=== PATIENT | female | born 1980 | race American Indian/Alaskan Native ===

== ENCOUNTER 2024-08-12 15:40 | Emergency (ER) | payer SELFPAY ==
[2024-08-12 15:55] VITALS: BP 124/77; PULSE 91; RESP 18; TEMP 37; O2SAT 97; BMI 23.5
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
--- OUTSIDE RECORDS SUMMARY | 2024-08-12 18:42 | XMS_ITS | Referral Summary ---
Author Organization [facility] Address [address] [address] Care Team Providers Care Medical Photographer Name Role Phone Unavailable Primary Care Provider Unavailabl e Allergies Active Allergy Reactions Criticality Noted Date Comments Onion 11/12/2012 Medications Medication Sig Dispensed Refills Start Date End Date Status loratadine (CLARITIN) 10 MG tablet Take 10 mg by mouth nightly. Active calcium carbonate (TUMS) 500 MG chewable tablet Take 2 tablets by mouth 2 (two) times daily as needed. Active venlafaxine (EFFEXOR-XR) 75 MG 24 hr capsule Take 75 mg by mouth nightly. Active traZODone (DESYREL) 100 MG tablet Take 1 tablet (100 mg total) by mouth nightly as needed for Sleep. 30 tablet 0 11/15/2012 Active venlafaxine (EFFEXOR-XR) 75 MG 24 hr capsule Take 1 capsule (75 mg total) by mouth nightly. 30 capsule 0 11/15/2012 Active Active Problems Problem Noted Date Diagnosed Date Major depressive disorder, r ecurrent episode, severe, without mention of psychotic behavior 11/13/2012 Resolved Problems Problem Noted Date Diagnosed Date Resolved Date Suicidal ideation 11/13/2012 11/15/2012 Mood disorder 11/12/2012 11/15/2012 Social History Tobacco Use Types Packs/Day Years Used Date Smoking Tobacco: Never Assessed Alcohol Use Standard Drinks/Week Comments No 0 (1 standard drink = 0.6 oz pur e alcohol) Sexually Active Control Partners Comments Yes Female Sex and Gender Information Value Date Recorded Sex Assigned at Not on file Gender Identity Not on file Sexual Orientation Not on file Last Filed Vital Signs Vital Sign Reading Time Taken Comments Blood Pressure 103/59 11/15/2012 6:21 AM CDT Pulse 89 11/15/2012 6:21 AM CDT Temperature 37.1 C (98.7 F) 11/15/2012 6:21 AM CDT Respiratory Rate 16 11/15/2012 6:21 AM CDT Oxygen Saturation - - Inhaled Oxygen Concentration - - Weight 72.6 kg (160 lb) 11/12/2012 10:43 PM CDT Height 170.2 cm (5' 7) 11/12/2012 10:43 PM CDT Body Mass Index 25.06 11/12/2012 10:43 PM CDT Plan of Treatment Not on file Advance Directives For more information, please contact: [phone] * Full Code (Latest Code Status on File) Date Activated Date Inactivated Comments 11/12/2012 10:54 PM 11/15/2012 5:16 PM
--- OUTSIDE RECORDS SUMMARY | 2024-08-12 18:42 | XMS_ITS | Clinical Summary ---
Author Organization [facility] Address [address] [address] Care Team Providers Care Utility Agent Name Role Phone Unavailable Primary Care Provider [...] ideation 11/13/2012 11/15/2012 Mood disorder 11/12/2012 11/15/2012 Family History Medical History Relation Comments Mental illness Sister Relation Status Comments Sister Social History Tobacco Use Types Packs/Day Years [...] 11/12/2012 10:43 PM CDT Plan of Treatment Health Maintenance Due Date Last Done Comments Breast Cancer Screening-Mammogram 1987 Varicella Vaccines (1 of 2 - 13+ 2-dose series) 1995 DTaP,Tdap,and Td Vaccines (1 - Tdap) 1999 Hepatitis C Screening 2000 MMR Vaccines-Adult 2001 Cervical Cancer Screening 2003 COVID-19 Vaccine (2023-2 5 season) 2024 Influenza Vaccine (#1) 2024 HIB Vaccines Aged Out No longer eligi ble based on patient's age to complete this topic IPV Vaccines Aged Out No longer eligi ble based on patient's age to complete this topic Meningococcal B Vaccine Aged Out No l onger eligible based on patient's age to complete this topic Meningococcal Vaccine Aged Out No corazon veronica eligible based on patient's age to complete this topic Pneumo-Vaccine: At Risk 6-49 Yrs Aged Out No longer eligible based on patient's age to complete this topic Rotavirus Vaccines Aged Out No longer eligible based on patient's age to complete this topic Advance Directives For more information, please contact: [phone] * Full Code (Latest Code Status on File) Date Activated Date Inactivated Comments 11/12/2012 10:54 PM 11/15/2012 5:16 PM
== END 2024-08-12 18:42 | disposition home or self-care (01) ==
LOC: ED 18:40
PROVIDERS: Emergency Provider Emergency Medicine Emergency Medical Services
DX: S39.012A Strain of muscle, fascia and tendon of lower back, initial encounter (principal); V43.62XA Car passenger injured in collision with other type car in traffic accident, initial encounter
CPT/HCPCS: 99283; 99284